=== PATIENT | female | born 1960 | race Caucasian/White ===

== ENCOUNTER 2018-01-31 15:05 | Inpatient (IN) | payer BC ==
[~2018-01-31] VITALS: Ht 152.4 cm; Wt 99.8 kg
[2018-01-31] MEDS ORDERED: FORT1000TA PO (15:21)
[2018-01-31] MEDS ORDERED: FARXIGA10 PO (15:22)
[2018-01-31] MEDS ORDERED: CYMBALTA 30MG30 MG PO (15:22)
[2018-01-31] MEDS ORDERED: NEURONTIN600 MG/TAB PO (15:23)
[2018-01-31] MEDS ORDERED: PRINIVIL20 MG PO (15:23)
[2018-01-31 15:27] LABS: BASO # 0.1 (0.0-0.2); BASO % 0.5 % (0.0-2.0); EOS # 0.1 (0.0-0.7); EOS % 1.3 % (0-4.0); GRAN # 6.9 (1.4-6.5); HEMATOCRIT 47.2 % (37.0-47.0); HEMOGLOBIN 16.9 g/dl (12.5-16.0); LYMPH # 2.9 (1.2-3.4); LYMPH % 26.6 % (20.0-51.0); MEAN CELL VOLUME 85 fl (80.0-100.0); MEAN CORPUSCULAR HEMOGLOBIN 31 pg (27.0-31.0); MEAN CORPUSCULAR HGB CONC 36 g/dl (33.0-37.0); MEAN PLATELET VOLUME 9.7 fl (7.4-10.4); MONO % 9.2 % (1.7-9.3); PLATELET COUNT 244 K/mm3 (130-400); RED BLOOD COUNT 5.53 M/mm3 (4.10-5.30); REDCELL DISTRIBUTION WIDTH-CV 13.2 % (11.5-14.5)
[2018-01-31 15:32] LABS: ALANINE AMINOTRANSFERASE 44 U/L (9-52); ALBUMIN 4.8 gm/dL (3.5-5.0); ALKALINE PHOSPHATASE 71 U/L (50-136); ANION GAP 16 mmol/L (7-16); AST,SGOT 46 U/L (15-37); BILIRUBIN,TOTAL 1.2 mg/dL (0.0-1.0); BLOOD UREA NITROGEN 25 mg/dL (7-17); CALCIUM 9.5 mg/dL (8.4-10.2); CARBON DIOXIDE 22 mmol/L (22-30); CHLORIDE 96 mmol/L (98-107); CREATINE KINASE 110 U/L (30-135); CREATININE, serum 1.37 mg/dL (0.52-1.25); GLUCOSE 119 mg/dL (74-106); LIPASE 92 U/L (23-300); POTASSIUM 4.1 mmol/L (3.4-5.0); SODIUM 134 mmol/L (137-145); TOTAL PROTEIN 8.7 gm/dL (6.4-8.2)
[2018-01-31 15:33] LABS: INR 1.1 (0.8-3.0); PROTHROMBIN TIME 12.1 SECONDS (9.7-12.8)
[2018-01-31 15:46] LABS: TROPONIN-I < 0.012 ng/mL (0.000-0.034)
[2018-01-31] MEDS ORDERED: HYGROTON 2525 MG/TAB PO (17:21)
[2018-01-31 18:09] VITALS: BP 135/63; PULSE 70; TEMP 98.1
[2018-01-31 20:30] VITALS: BP 93/41; PULSE 85; TEMP 98.2
[2018-01-31 22:00] VITALS: PULSE 68
[2018-02-01 00:17] VITALS: BP 94/55
[2018-02-01 01:00] VITALS: BP 94/53; PULSE 65; TEMP 98.1
[2018-02-01 01:15] VITALS: BP 95/30
[2018-02-01 01:19] VITALS: BP 90/40
[2018-02-01 05:14] VITALS: BP 128/86; PULSE 73; TEMP 98.2
[2018-02-01 07:06] LABS: BASO % 0.2 % (0.0-2.0); GRAN # 3.9 (1.4-6.5); GRAN % 84.4 % (42.2-75.2); HEMATOCRIT 41.9 % (37.0-47.0); LYMPH # 0.7 (1.2-3.4); LYMPH % 14.3 % (20.0-51.0); MEAN CELL VOLUME 89 fl (80.0-100.0); MEAN CORPUSCULAR HEMOGLOBIN 30 pg (27.0-31.0); MEAN CORPUSCULAR HGB CONC 34 g/dl (33.0-37.0); MEAN PLATELET VOLUME 10.1 fl (7.4-10.4); MONO % 0.9 % (1.7-9.3); PLATELET COUNT 191 K/mm3 (130-400); RED BLOOD COUNT 4.72 M/mm3 (4.10-5.30); REDCELL DISTRIBUTION WIDTH-CV 13.4 % (11.5-14.5)
[2018-02-01 07:17] LABS: ALANINE AMINOTRANSFERASE 41 U/L (9-52); ALBUMIN 3.8 gm/dL (3.5-5.0); ALKALINE PHOSPHATASE 62 U/L (50-136); ANION GAP 10 mmol/L (7-16); AST,SGOT 37 U/L (15-37); BILIRUBIN,TOTAL 0.4 mg/dL (0.0-1.0); BLOOD UREA NITROGEN 26 mg/dL (7-17); CALCIUM 8.2 mg/dL (8.4-10.2); CARBON DIOXIDE 26 mmol/L (22-30); CHLORIDE 100 mmol/L (98-107); CREATININE, serum 0.98 mg/dL (0.52-1.25); GLUCOSE 154 mg/dL (74-106); SODIUM 135 mmol/L (137-145); TOTAL PROTEIN 7.1 gm/dL (6.4-8.2)
[2018-02-01 07:27] LABS: HEMOGLOBIN 14.2 g/dl (12.5-16.0)
[2018-02-01 07:28] VITALS: BP 103/40; PULSE 67; TEMP 98
[2018-02-01 07:28] LABS: TROPONIN-I < 0.012 ng/mL (0.000-0.034)
[2018-02-01] MEDS ORDERED: PROAIR HFA0.09 MG/AC IH (13:52)
[2018-02-01] MEDS ORDERED: DOXYCYCLINE 10100 MG PO (13:52)
[2018-02-01] MEDS ORDERED: PREDNISONE20 MG PO (13:52)
[2018-02-03] MEDS ORDERED: FARXIGA10 PO (07:39)
[2018-02-03] MEDS ORDERED: CYMBALTA 30MG30 MG PO (07:40)
[2018-02-03] MEDS ORDERED: NEURONTIN600 MG/TAB PO (07:41)
== END 2018-02-01 15:36 | disposition home or self-care (01) | DRG 197 ==
LOC: COL.ER 15:05 → MEDICAL 17:36
PROVIDERS: Emergency Medicine; Nurse Practitioner Family
DX: J84.9 Interstitial pulmonary disease, unspecified (principal); E87.1 Hypo-osmolality and hyponatremia; N17.9 Acute kidney failure, unspecified; M79.622 Pain in left upper arm; R20.2 Paresthesia of skin; R06.02 Shortness of breath; I10 Essential (primary) hypertension; E11.9 Type 2 diabetes mellitus without complications; F17.210 Nicotine dependence, cigarettes, uncomplicated; D75.1 Secondary polycythemia
CPT/HCPCS: OP; 99222; 99222-AI; J0456; J0696; J1650; J1815; J2060; J2405; J7030; J7050; J7512; Q9967

== ENCOUNTER → 2018-02-03 | Outpatient (CLI) | payer BC ==
[~2018-02-03] VITALS: Ht 152.4 cm; Wt 102.3 kg
[~2018-02-03] MED LIST: CYMBALTA 30MG30 MG PO; DOXYCYCLINE 10100 MG PO; FARXIGA10 PO; FORT1000TA PO; HYGROTON 2525 MG/TAB PO; NEURONTIN600 MG/TAB PO; PREDNISONE20 MG PO; PRINIVIL20 MG PO; PROAIR HFA0.09 MG/AC IH
[2018-02-03 07:46] VITALS: BP 95/52; PULSE 66
== END ==
LOC: COL.RAD 07:31
DX: R06.02 Shortness of breath (principal); R07.9 Chest pain, unspecified; M79.622 Pain in left upper arm
CPT/HCPCS: A9502

== ENCOUNTER 2018-03-06 07:39 | Day surgery (SDC) | payer BC ==
[2018-03-06] VITALS (10 sets, daily range): BP systolic 108–145; BP diastolic 76–98; PULSE 56–71; TEMP 97.7–98.6
[~2018-03-06] VITALS: Ht 152.5 cm; Wt 101.0 kg
[2018-03-06 08:11] LABS: HEMATOCRIT 43.3 % (37.0-47.0); HEMOGLOBIN 14.7 g/dl (12.5-16.0); MEAN CELL VOLUME 89 fl (80.0-100.0); MEAN CORPUSCULAR HEMOGLOBIN 30 pg (27.0-31.0); MEAN CORPUSCULAR HGB CONC 34 g/dl (33.0-37.0); MEAN PLATELET VOLUME 9.9 fl (7.4-10.4); PLATELET COUNT 193 K/mm3 (130-400); RED BLOOD COUNT 4.89 M/mm3 (4.10-5.30)
[2018-03-06 08:25] LABS: CALCIUM 8.7 mg/dL (8.4-10.2); CREATININE, serum 0.65 mg/dL (0.52-1.25); POTASSIUM 4.3 mmol/L (3.4-5.0); PROTHROMBIN TIME 11.2 SECONDS (9.7-12.8)
[2018-03-06] MEDS ORDERED: LIPITOR 10MG10 MG PO (10:34)
[2018-03-06] MEDS ORDERED: EPA FISH OIL1 SGL PO (10:35)
== END 2018-03-06 14:27 | disposition home or self-care (01) ==
LOC: COL.CAR 07:39
PROVIDERS: Internal Medicine Cardiovascular Disease
DX: R94.39 Abnormal result of other cardiovascular function study (principal); I35.1 Nonrheumatic aortic (valve) insufficiency; E11.9 Type 2 diabetes mellitus without complications; I10 Essential (primary) hypertension; R20.2 Paresthesia of skin; R68.84 Jaw pain; M19.90 Unspecified osteoarthritis, unspecified site; E66.09 Other obesity due to excess calories; Z68.41 Body mass index [BMI] 40.0-44.9, adult; Z79.82 Long term (current) use of aspirin; Z79.84 Long term (current) use of oral hypoglycemic drugs; Z77.22 Contact with and (suspected) exposure to environmental tobacco smoke (acute) (chronic); Z80.8 Family history of malignant neoplasm of other organs or systems; Z83.3 Family history of diabetes mellitus; Z82.49 Family history of ischemic heart disease and other diseases of the circulatory system; Z80.0 Family history of malignant neoplasm of digestive organs
CPT/HCPCS: C1769; J1644; J2250; J3010; Q9967

== ENCOUNTER → 2018-05-06 | Outpatient (CLI) | payer BC ==
[~2018-05-06] MED LIST changes: +EPA FISH OIL1 SGL PO; +LIPITOR 10MG10 MG PO
== END ==
LOC: COL.RAD 07:54
DX: Z13.89 Encounter for screening for other disorder (principal); R53.1 Weakness

== ENCOUNTER 2019-11-01 13:17 | Emergency (ER) | payer BC ==
[~2019-11-01] VITALS: Ht 152.4 cm; Wt 102.3 kg
[2019-11-01 13:25] VITALS: TEMP 98.6
[2019-11-01 14:03] LABS: BASO % 0.5 % (0.0-2.0); EOS # 0.1 (0.0-0.7); EOS % 1.3 % (0-4.0); GRAN # 7.1 (1.4-6.5); GRAN % 88.1 % (42.2-75.2); HEMOGLOBIN 15.7 g/dl (12.5-16.0); LYMPH # 0.7 (1.2-3.4); LYMPH % 8.8 % (20.0-51.0); MEAN CELL VOLUME 90 fl (80.0-100.0); MEAN CORPUSCULAR HEMOGLOBIN 30 pg (27.0-31.0); MEAN CORPUSCULAR HGB CONC 33 g/dl (33.0-37.0); MEAN PLATELET VOLUME 10.7 fl (7.4-10.4); MONO # 0.1 (0.1-0.6); MONO % 0.8 % (1.7-9.3); PLATELET COUNT 209 K/mm3 (130-400); RED BLOOD COUNT 5.23 M/mm3 (4.10-5.30); REDCELL DISTRIBUTION WIDTH-CV 13.3 % (11.5-14.5)
[2019-11-01 14:05] LABS: ACETONE,SERUM NEGATIVE
[2019-11-01 14:10] LABS: ALANINE AMINOTRANSFERASE 42 U/L (4-34); ALBUMIN 4.9 gm/dL (3.5-5.0); ALKALINE PHOSPHATASE 138 U/L (50-136); ANION GAP 10 mmol/L (7-16); AST,SGOT 61 U/L (15-37); BILIRUBIN,TOTAL 1.2 mg/dL (0.0-1.0); BLOOD UREA NITROGEN 19 mg/dL (7-17); C-REACTIVE PROTEIN 1.9 mg/dL (0.0-0.9); CALCIUM 9.4 mg/dL (8.4-10.2); CARBON DIOXIDE 28 mmol/L (22-30); CHLORIDE 101 mmol/L (98-107); GLUCOSE 208 mg/dL (74-106); POTASSIUM 4.6 mmol/L (3.4-5.0); SODIUM 138 mmol/L (137-145); TOTAL PROTEIN 9.3 gm/dL (6.4-8.2)
[2019-11-01 15:12] LABS: COLLECTION METHOD CLEAN CATCH
[2019-11-01 15:19] LABS: MUCOUS Present /lpf; PH 6 (5-8); SQUAMOUS EPITHELIAL 0-2 /hpf; URINE APPEARANCE Clear; URINE BACTERIA Rare /hpf; URINE BILIRUBIN Negative (NEGATIVE); URINE BLOOD Negative (NEGATIVE); URINE COLOR Yellow; URINE GLUCOSE 1+ (NEGATIVE); URINE KETONE Negative (NEGATIVE); URINE LEUKOCYTE ESTERASE 1+ (NEGATIVE); URINE NITRATE Negative (NEGATIVE); URINE PROTEIN(semi-quant) Negative (NEGATIVE); URINE RBC 0-2 /hpf; URINE UROBILINOGEN Negative (NEGATIVE)
[2019-11-01 15:54] VITALS: BP 132/86; PULSE 89
== END 2019-11-01 16:10 | disposition home or self-care (01) ==
LOC: COL.ER 13:17
PROVIDERS: Emergency Medicine
DX: E11.65 Type 2 diabetes mellitus with hyperglycemia (principal); F32.9 Major depressive disorder, single episode, unspecified; Z98.51 Tubal ligation status; Z79.84 Long term (current) use of oral hypoglycemic drugs
CPT/HCPCS: J7030

== ENCOUNTER 2019-11-07 16:35 | Inpatient (IN) | payer SELFPAY ==
[~2019-11-07] VITALS: Ht 152.4 cm; Wt 101.1 kg
[2019-11-07] MEDS ORDERED: CEPHALEXIN250 M1 (16:49)
[2019-11-07 18:02] LABS: BASO # 0.1 (0.0-0.2); BASO % 0.5 % (0.0-2.0); EOS % 0.1 % (0-4.0); GRAN # 17.4 (1.4-6.5); HEMATOCRIT 40.1 % (37.0-47.0); HEMOGLOBIN 13.6 g/dl (12.5-16.0); LYMPH # 1.7 (1.2-3.4); LYMPH % 8.3 % (20.0-51.0); MEAN CELL VOLUME 88 fl (80.0-100.0); MEAN CORPUSCULAR HEMOGLOBIN 30 pg (27.0-31.0); MEAN CORPUSCULAR HGB CONC 34 g/dl (33.0-37.0); MEAN PLATELET VOLUME 9.7 fl (7.4-10.4); MONO # 0.9 (0.1-0.6); MONO % 4.5 % (1.7-9.3); PLATELET COUNT 216 K/mm3 (130-400); RED BLOOD COUNT 4.54 M/mm3 (4.10-5.30)
[2019-11-07 18:05] LABS: ACETONE,SERUM NEGATIVE
[2019-11-07 18:12] LABS: ALANINE AMINOTRANSFERASE 26 U/L (4-34); ALBUMIN 3.8 gm/dL (3.5-5.0); ALKALINE PHOSPHATASE 94 U/L (50-136); ANION GAP 7 mmol/L (7-16); AST,SGOT 33 U/L (15-37); BILIRUBIN,TOTAL 0.9 mg/dL (0.0-1.0); BLOOD UREA NITROGEN 18 mg/dL (7-17); CALCIUM 8.7 mg/dL (8.4-10.2); CARBON DIOXIDE 27 mmol/L (22-30); CHLORIDE 100 mmol/L (98-107); CREATININE, serum 0.73 (0.52-1.25); GLUCOSE 145 mg/dL (74-106); LIPASE 26 U/L (23-300); POTASSIUM 4.2 mmol/L (3.4-5.0); SODIUM 135 mmol/L (137-145); TOTAL PROTEIN 7.7 gm/dL (6.4-8.2)
[2019-11-07 18:23] LABS: C-REACTIVE PROTEIN 15.1 mg/dL (0.0-0.9); TROPONIN-I < 0.012 ng/mL (0.000-0.035)
[2019-11-07 19:03] LABS: COLLECTION METHOD CLEAN CATCH
[2019-11-07 19:21] LABS: MUCOUS Present /lpf; PH 6 (5-8); SQUAMOUS EPITHELIAL 0-2 /hpf; URINE APPEARANCE Clear; URINE BACTERIA None Seen /hpf; URINE BILIRUBIN Negative (NEGATIVE); URINE BLOOD Negative (NEGATIVE); URINE COLOR Amber; URINE GLUCOSE Negative (NEGATIVE); URINE KETONE Negative (NEGATIVE); URINE LEUKOCYTE ESTERASE Negative (NEGATIVE); URINE NITRATE Negative (NEGATIVE); URINE PROTEIN(semi-quant) Negative (NEGATIVE); URINE RBC 0-2 /hpf
[2019-11-07 22:11] LABS: INR 1.2 (0.8-3.0); PROTHROMBIN TIME 13.2 SECONDS (9.7-12.8)
[2019-11-07 22:14] LABS: PARTIAL THROMBOPLASTIN TIME 37.4 SECONDS (26.0-37.0)
--- NOTE | 2019-11-07 22:24 | NUR ---
Attempted to call for report. No answer at this time.
--- NOTE | 2019-11-07 22:29 | NUR ---
Report received from Lisset JARQUIN
[2019-11-07 23:23] VITALS: BP 110/58; PULSE 80; TEMP 99.5
--- NOTE | 2019-11-07 23:30 | NUR ---
Arrived to 306. Assessment complete. Lungs dimished. Heart sounds normal. Bowels active. No edema noted. INT right AC without complciations. [employer] TEACHER at bedside with patient. Patient provided with PRN dilaudid for ABD pain. Educated regarding NPO status. Orientated to medical floor. IV fluids initiated. Denies other needs at this time. All questions answered. Call light in reach. Will monitor.
[2019-11-08 03:31] VITALS: BP 106/65; PULSE 80; TEMP 98.6
--- NOTE | 2019-11-08 03:40 | NUR ---
Patient BP 106 systolic. Patient wanting dilaudid. Okayd per [employer] to give 0.25mg instead of 0.5 mg. Will monitor.
--- NOTE | 2019-11-08 06:00 | NUR ---
Reports 5/10 ABD pain. Requested PRN dilaudid at this time. Manual BP 110/58. Provided to patient. Denies other needs at this time. Call light in reach.
--- NOTE | 2019-11-08 07:00 | NUR ---
Patient required x3 doses of dilaudid for pain control throughout night. Otherwise uneventful night. Resting in bed this AM. Call light in reach. Report given to MILKA Olivas
[2019-11-08 07:18] LABS: HEMOGLOBIN 12.1 g/dl (12.5-16.0); MEAN CELL VOLUME 89 fl (80.0-100.0); MEAN CORPUSCULAR HEMOGLOBIN 30 pg (27.0-31.0); MEAN CORPUSCULAR HGB CONC 34 g/dl (33.0-37.0); MEAN PLATELET VOLUME 10.2 fl (7.4-10.4); PLATELET COUNT 192 K/mm3 (130-400); RED BLOOD COUNT 4.03 M/mm3 (4.10-5.30); REDCELL DISTRIBUTION WIDTH-CV 13.2 % (11.5-14.5)
[2019-11-08 07:30] LABS: ALBUMIN 3.3 gm/dL (3.5-5.0); BILIRUBIN,TOTAL 0.6 mg/dL (0.0-1.0); CALCIUM 8.1 mg/dL (8.4-10.2); CREATININE, serum 0.68 (0.52-1.25); TOTAL PROTEIN 6.8 gm/dL (6.4-8.2)
[2019-11-08 08:32] VITALS: BP 108/62; PULSE 85; TEMP 100.1
--- NOTE | 2019-11-08 08:50 | NUR ---
Pt sleeping upon entry, easily awakenad, has C/O pain, shift assessments complete, left Pt call light in reach, bed in lowest position.
[2019-11-08 08:59] LABS: BAND 2 % (0-10); EOSINOPHIL 1 % (0-4); NEUTROPHILS 76 % (42.0-75.2)
[2019-11-08 09:00] LABS: PLATELET ESTIMATE NORMAL (NORMAL)
[2019-11-08 09:11] LABS: LYMPHOCYTE 16 % (20.0-51.0)
--- NOTE | 2019-11-08 11:06 | NUR ---
Plan to return home with her son. Patient reports that her brother Brian Osorio is her EMR contact . Patient reports that her son will help with transportation. Patient reports PCP is Dr. Sen and the use of [facility]. Patient denies the use of any DME or any other supports. Declines the use of Home healthcare. Her sister Elis Warren is also another support at .Denies having a POA. Patient denies having any care concerns. Will continue to monitor if needs change,
[2019-11-08 11:47] VITALS: BP 155/64; PULSE 68; TEMP 98
[2019-11-08 16:54] VITALS: BP 126/62; PULSE 71; TEMP 98.1
--- NOTE | 2019-11-08 19:45 | NUR ---
Received report from Brendon. Seen patient awake, lying in bed. During rounds Brendon informed patient that her Covid result turned negative. She complains of pain of 7/10 on her abdomen. Dilaudid PRN given. Patient will be transferred to a regular room.
[2019-11-08 19:48] VITALS: BP 124/65; PULSE 77; TEMP 99.1
--- NOTE | 2019-11-08 20:29 | NUR ---
Pt resting in the room today, had some C/O pain today, current medication regimen is working well for Pt, Asked Pt to call before her pain level is too severe and Pt does call. VS have remained stable.
--- NOTE | 2019-11-08 22:45 | NUR ---
Patient was transferred via wheelchair from [facility] to [facility]. Hospitalist completed the isolation precaution. Patient complains of abdominal pain. 12/08. Dilaudid given.
[2019-11-08 23:07] VITALS: BP 119/76; PULSE 74; TEMP 97.9
[2019-11-08 23:39] LABS: CLOSTRIDIUM DIFF A/B NEG; CLOSTRIDIUM DIFF A/B INTERP No C.diff present
[2019-11-09 04:08] VITALS: BP 128/81; PULSE 65; TEMP 97.4
[2019-11-09 06:15] LABS: BASO % 0.3 % (0.0-2.0); EOS # 0.1 (0.0-0.7); EOS % 1.1 % (0-4.0); GRAN # 8.7 (1.4-6.5); GRAN % 76.6 % (42.2-75.2); HEMOGLOBIN 12.3 g/dl (12.5-16.0); LYMPH # 1.6 (1.2-3.4); LYMPH % 14.4 % (20.0-51.0); MEAN CELL VOLUME 90 fl (80.0-100.0); MEAN CORPUSCULAR HEMOGLOBIN 30 pg (27.0-31.0); MEAN CORPUSCULAR HGB CONC 33 g/dl (33.0-37.0); MEAN PLATELET VOLUME 9.6 fl (7.4-10.4); MONO # 0.8 (0.1-0.6); MONO % 6.9 % (1.7-9.3); PLATELET COUNT 210 K/mm3 (130-400); RED BLOOD COUNT 4.11 M/mm3 (4.10-5.30); REDCELL DISTRIBUTION WIDTH-CV 13.2 % (11.5-14.5)
[2019-11-09 06:16] LABS: HEMATOCRIT 36.8 % (37.0-47.0)
[2019-11-09 06:23] LABS: ALBUMIN 3.4 gm/dL (3.5-5.0); BILIRUBIN,TOTAL 0.6 mg/dL (0.0-1.0); CALCIUM 8.5 mg/dL (8.4-10.2); CREATININE, serum 0.57 (0.52-1.25); POTASSIUM 4.3 mmol/L (3.4-5.0)
--- NOTE | 2019-11-09 06:25 | NUR ---
Patient still with right lower quadrant pain that requires Dilaudid PRN. Last Dilaudid given at 0442H and states her pain now is around 4/10. C-Diff and Covid swab result turned negative. Will endorse to day shift nurse.
--- NOTE | 2019-11-09 07:15 | NUR ---
Pt resting in bed, reports pain to right lower quadrant of abd 5 out of 10, requesting medication which is administered per orders. Pt A&O x 4. IVF's infusing per orders through right AC site without s/s of complications. Physical assessment unremarkable. No further needs reported. Call light in reach.
[2019-11-09 07:52] VITALS: BP 130/86; PULSE 64; TEMP 98
[2019-11-09 08:42] LABS: PATHOLOGY DIFF REVIEW OK +
--- NOTE | 2019-11-09 11:00 | NUR ---
IVF rate decreased to 75 ml/hr per orders.
--- NOTE | 2019-11-09 11:07 | NUR ---
First visit from the safety trainer. No needs right now.
[2019-11-09 15:38] VITALS: BP 132/85; PULSE 71; TEMP 98.8
--- NOTE | 2019-11-09 18:00 | NUR ---
Pt sitting up in chair, reports pain to abd has greatly improved, denies need for medication at this time. Call light in reach.
[2019-11-09 19:31] VITALS: BP 116/80; PULSE 72; TEMP 98.3
--- NOTE | 2019-11-09 19:46 | NUR ---
Received report from Kenzie. Patient is awake, sitting in bed. She states she's starting to have pain again, with pain score of 3/10. She wants to have some Dilaudid. IV at right AC, infusing NS at 75ml/hr. Lungs are clear. Call light within reach.
--- NOTE | 2019-11-09 22:30 | NUR ---
Patient states her IV site is leaking. Upon checking, leaking was noted and no backflow noted. Tried to reinsert on her left forearm but failed. Will ask charge nurse for reinsertion.
[2019-11-09 23:46] VITALS: BP 134/74; PULSE 67; TEMP 98.3
--- NOTE | 2019-11-10 00:30 | NUR ---
Marco Antonio JARQUIN, was able to reinsert her IV on left forearm, G22.
[2019-11-10 04:07] VITALS: BP 124/90; PULSE 70; TEMP 99.2
[2019-11-10 06:07] LABS: BASO % 0.2 % (0.0-2.0); EOS # 0.1 (0.0-0.7); EOS % 1.6 % (0-4.0); GRAN # 6.1 (1.4-6.5); GRAN % 72.8 % (42.2-75.2); HEMATOCRIT 37.8 % (37.0-47.0); HEMOGLOBIN 12.6 g/dl (12.5-16.0); LYMPH # 1.5 (1.2-3.4); MEAN CELL VOLUME 89 fl (80.0-100.0); MEAN CORPUSCULAR HEMOGLOBIN 30 pg (27.0-31.0); MEAN CORPUSCULAR HGB CONC 33 g/dl (33.0-37.0); MEAN PLATELET VOLUME 9.8 fl (7.4-10.4); MONO # 0.6 (0.1-0.6); MONO % 6.7 % (1.7-9.3); PLATELET COUNT 235 K/mm3 (130-400); RED BLOOD COUNT 4.26 M/mm3 (4.10-5.30); REDCELL DISTRIBUTION WIDTH-CV 12.8 % (11.5-14.5)
[2019-11-10 06:16] LABS: CALCIUM 8.7 mg/dL (8.4-10.2); CREATININE, serum 0.58 (0.52-1.25); POTASSIUM 4.3 mmol/L (3.4-5.0)
--- NOTE | 2019-11-10 07:29 | NUR ---
Patient still had pain but more of controlled now. Dilaudid given at around 0400H. Patient fell asleep after that. Otherwise, she had an uneventful night.
--- NOTE | 2019-11-10 07:30 | NUR ---
Patient is awake and alert in room, she is currently denying pain. She verbalizes no needs at this time, call light and personal items are within reach.
[2019-11-10 09:05] VITALS: BP 114/53; PULSE 64; TEMP 98.7
[2019-11-10] MEDS ORDERED: LEVAQUIN 750MG750 M1 PO (09:29)
[2019-11-10] MEDS ORDERED: ZOFRAN 4MG T4 MG/TAB PO (09:32)
[2019-11-10] MEDS ORDERED: FLAGYL500 MG PO (09:32)
[2019-11-10] MEDS ORDERED: NORCO 325 MG-51 TAB PO (09:33)
--- NOTE | 2019-11-10 12:44 | NUR ---
Patient discharged home at 1240, was assisted to ER entrance via wheelchair and accompanied by staff. Personal belongings were with patient.
== END 2019-11-10 12:40 | disposition home or self-care (01) | DRG 392 ==
LOC: COL.ER 16:35 → MEDICAL 20:12 → EDBEDREQ 21:20 → EDBEDREQTM 21:20 → MEDICAL 11-08 22:45
PROVIDERS: Emergency Medicine; Nurse Practitioner Family; Physician Assistant; ADMIT Student in an Organized Health Care Education/Training Program
DX: K57.32 Diverticulitis of large intestine without perforation or abscess without bleeding (principal); I10 Essential (primary) hypertension; N85.00 Endometrial hyperplasia, unspecified; F32.9 Major depressive disorder, single episode, unspecified; E11.40 Type 2 diabetes mellitus with diabetic neuropathy, unspecified; Z79.84 Long term (current) use of oral hypoglycemic drugs; Z11.59 Encounter for screening for other viral diseases; Z87.891 Personal history of nicotine dependence
CPT/HCPCS: 99223-AI; 99232-AI; 99239; A9284; J1170; J1650; J1956; J2405; J3010; J7030; Q9967

== ENCOUNTER 2020-09-21 15:45 | Emergency (ER) | payer BC ==
[~2020-09-21] VITALS: Ht 152.4 cm; Wt 100.0 kg
[~2020-09-21 15:45] MED LIST changes: +CEPHALEXIN250 M1; +FLAGYL500 MG PO; +LEVAQUIN 750MG750 M1 PO; +NORCO 325 MG-51 TAB PO; +ZOFRAN 4MG T4 MG/TAB PO
[2020-09-21 15:56] VITALS: TEMP 98.9
[2020-09-21 17:06] LABS: BASO % 0.5 % (0.0-2.0); EOS # 0.1 (0.0-0.7); EOS % 1.4 % (0-4.0); GRAN # 4.2 (1.4-6.5); GRAN % 57.5 % (42.2-75.2); HEMATOCRIT 46.3 % (37.0-47.0); HEMOGLOBIN 15.7 g/dl (12.5-16.0); LYMPH # 2.4 (1.2-3.4); LYMPH % 32.5 % (20.0-51.0); MEAN CELL VOLUME 87 fl (80.0-100.0); MEAN CORPUSCULAR HEMOGLOBIN 30 pg (27.0-31.0); MEAN CORPUSCULAR HGB CONC 34 g/dl (33.0-37.0); MONO # 0.6 (0.1-0.6); MONO % 7.8 % (1.7-9.3); PLATELET COUNT 238 K/mm3 (130-400); RED BLOOD COUNT 5.32 M/mm3 (4.10-5.30); REDCELL DISTRIBUTION WIDTH-CV 13.3 % (11.5-14.5)
[2020-09-21 17:13] LABS: ALBUMIN 4.4 gm/dL (3.5-5.0); BILIRUBIN,TOTAL 0.7 mg/dL (0.0-1.0); C-REACTIVE PROTEIN 0.8 mg/dL (0.0-0.9); CALCIUM 9.1 mg/dL (8.4-10.2); CREATININE, serum 0.71 (0.52-1.25); POTASSIUM 4.1 mmol/L (3.4-5.0); TOTAL PROTEIN 8.4 gm/dL (6.4-8.2)
[2020-09-21 18:49] VITALS: BP 139/87; PULSE 91
== END 2020-09-21 18:49 | disposition home or self-care (01) ==
LOC: COL.ER 15:45
PROVIDERS: Physician Assistant
DX: R10.32 Left lower quadrant pain (principal); E11.9 Type 2 diabetes mellitus without complications; Z79.84 Long term (current) use of oral hypoglycemic drugs
CPT/HCPCS: J1170; J7030; Q9967

== ENCOUNTER → 2020-11-16 | Outpatient (CLI) | payer BC ==
[~2020-11-16] MED LIST changes: +FORTAMET500 M1 PO; +NASACORT OTC NS; +ZYRTEC 10MG10 MG PO
== END ==
LOC: MC.RAD 10:00
DX: N64.89 Other specified disorders of breast (principal)

== ENCOUNTER 2021-01-06 06:48 | Day surgery (SDC) | payer BC ==
[~2021-01-06] VITALS: Ht 152.4 cm; Wt 101.5 kg
[~2021-01-06 06:48] MED LIST changes: -FORTAMET500 M1 PO; -NASACORT OTC NS; -ZYRTEC 10MG10 MG PO
[2021-01-06] MEDS ORDERED: FORTAMET500 M1 PO (07:25)
[2021-01-06] MEDS ORDERED: FARXIGA10 PO (07:27)
[2021-01-06] MEDS ORDERED: NASACORT OTC NS (07:29)
[2021-01-06] MEDS ORDERED: ZYRTEC 10MG10 MG PO (07:30)
[2021-01-06 07:55] VITALS: BP 118/73; PULSE 81; TEMP 98.3
[2021-01-06 08:25] VITALS: BP 135/86; PULSE 76; TEMP 97.7
--- NOTE | 2021-01-06 08:25 | NUR ---
Pt to GI bay 3 via cart from ENDO. Pt drowsy, but awake. Pt denies pain or nausea. Pt ambulates to recliner with stand by assistance. VSS. Friend Rylee in room. into speak with pt. Muffin and juice given per pt request. Call light within reach.
[2021-01-06 08:40] VITALS: BP 131/90; PULSE 74
--- NOTE | 2021-01-06 08:40 | NUR ---
Pt continues to rest. Tolerating PO food and fluids without difficulties. Will continue to monitor.
[2021-01-06 08:55] VITALS: BP 122/76; PULSE 79
--- NOTE | 2021-01-06 08:55 | NUR ---
Discharge instructions reviewed. Pt voices understanding. IV site discontinued with all parts intact. Pt up to dress.
--- NOTE | 2021-01-06 09:15 | NUR ---
Pt escorted to private car via wheel chair. Pt accompanied home by her friend.
== END 2021-01-06 09:15 | disposition home or self-care (01) ==
LOC: SDCO 06:48
DX: Z12.11 Encounter for screening for malignant neoplasm of colon (principal); K62.89 Other specified diseases of anus and rectum; K64.4 Residual hemorrhoidal skin tags; K57.30 Diverticulosis of large intestine without perforation or abscess without bleeding; E11.42 Type 2 diabetes mellitus with diabetic polyneuropathy; E66.09 Other obesity due to excess calories; I10 Essential (primary) hypertension; M19.90 Unspecified osteoarthritis, unspecified site; Z79.84 Long term (current) use of oral hypoglycemic drugs; Z79.899 Other long term (current) drug therapy; Z85.41 Personal history of malignant neoplasm of cervix uteri; Z20.822 Contact with and (suspected) exposure to COVID-19; Z80.8 Family history of malignant neoplasm of other organs or systems; Z80.0 Family history of malignant neoplasm of digestive organs
CPT/HCPCS: J2704; J7120

== ENCOUNTER → 2022-03-09 | Outpatient (CLI) | payer BC ==
[~2022-03-09] MED LIST changes: +FORTAMET500 M1 PO; +NASACORT OTC NS; +ZYRTEC 10MG10 MG PO
== END ==
LOC: MC.RAD 07:15
DX: Z12.31 Encounter for screening mammogram for malignant neoplasm of breast (principal)